=== PATIENT | male | born 1985 | race Caucasian/White ===

== ENCOUNTER 2019-07-09 14:41 | Outpatient (CLI) | payer OTHER ==
--- NOTE | 2019-07-10 10:54 | MRI Report ---
Reason: PAIN IN LEFT SHOULDER Procedure Date: 07/09/2019 Accession Number: [id number] / [id number] Procedure: MRI - Shoulder LT W/O CPT Code: Final Report FULL RESULT: EXAM: LEFT SHOULDER MRI WITHOUT CONTRAST EXAM DATE: 07/09/2019 04:10 PM. CLINICAL HISTORY: Pain in left shoulder. COMPARISON: None. TECHNIQUE: Multiplanar, multisequence T1-weighted and fluid-sensitive sequences of the shoulder without contrast. Other: None. FINDINGS: Acromioclavicular Region: The acromion is type II unipartite. The acromioclavicular joint is unremarkable. The coracoacromial and coracoclavicular ligaments are intact. Trace amount of bursal fluid is present. Glenohumeral Region: No subluxation. No effusion or loose bodies. The articular cartilage is unremarkable. The glenohumeral ligaments and joint capsule are unremarkable. Bone Marrow: No fracture, marrow edema or bone lesions. Labrum: Undersurface abnormal increased T2 signal at the biceps labral attachment. Series 501 image 13. Musculature/Rotator Cuff: There is a small amount of increased T2 signal of the distal subscapularis portion of the cuff. No partial or full-thickness fluid-filled gaps are noted. Mild amount of increased T2 signal in the distal supraspinatus and infraspinatus portion of the cuff. No proximal edema or fatty atrophy. Biceps Tendon: The long head of the biceps tendon and biceps katheryn are intact. Other: The subcutaneous tissues are unremarkable. IMPRESSION: 1. Type II unipartite undersurface osseous acromion shape. AC joint is unremarkable. Trace amount of bursal fluid is present. This may indicate mild bursitis. 2. Increased T2 signal undersurface of the biceps labral attachment, worrisome for a SLAP lesion. 3. Mild tendinopathy/tendinitis at the subscapularis portion of the cuff. No partial or full-thickness tears are seen. Lesser amounts of increased T2 signal seen in the supraspinatus and infraspinatus portions of the cuff. Teres minor is normal. 4. Long head of biceps also is normal. [facility]
== END 2019-07-09 14:42 | disposition home or self-care (01) ==
LOC: DI 14:41
DX: M77.9 Enthesopathy, unspecified (principal); M25.412 Effusion, left shoulder

== ENCOUNTER 2019-09-17 14:09 | Outpatient (CLI) | payer OTHER ==
[2019-09-17] MEDS ORDERED: BUFFERED LIDOCAINE 10 ML SYRINGE ONE (14:23)
[2019-09-17] MEDS ORDERED: GADOBUTROL 10 MMOL/10 ML VIAL ONE (14:23)
[2019-09-17] MEDS ORDERED: IOTHALAMATE MEGLUMINE 50 ML VIAL ONE (14:23)
--- NOTE | 2019-09-17 15:57 | XRAY Report ---
Reason: PAIN IN LT SHOULDER Procedure Date: 09/17/2019 Accession Number: [id number] / [id number] Procedure: FL - Arthrogram Needle Placement CPT Code: Final Report FULL RESULT: EXAM: LEFT SHOULDER ARTHROGRAPHIC INJECTION WITH FLUOROSCOPIC GUIDANCE EXAM DATE: 09/17/2019 03:07 PM. CLINICAL HISTORY: Pain in left shoulder. COMPARISON: ARTHROGRAM SHOULDER LT 09/17/2019 3:06 PM. TECHNIQUE: The risks, benefits, and alternatives of the procedure were discussed with the patient. All questions were answered. Written and verbal consent were obtained. The glenohumeral joint was marked under fluoroscopy and prepped and draped in a sterile manner. Local anesthesia was performed with 1% lidocaine. A 22-gauge needle was then inserted into the glenohumeral joint. 10 mL of a solution containing 25% 1% lidocaine, 25% iodinated contrast, and a 1:200 dilution of gadolinium contrast in sterile saline was then injected. The needle was removed without immediate complication. Other: None. Fluoroscopy Time: 0.1 minutes. Number of Images: 2. FINDINGS: Bones and joints: No fracture or subluxation. Injection: Fluoroscopic images demonstrate needle placement and contrast in the glenohumeral joint. No contrast extravasation outside of the glenohumeral joint. IMPRESSION: Successful fluoroscopically guided arthrographic injection of the shoulder. [facility]
--- NOTE | 2019-09-17 16:23 | MRI Report ---
Reason: PAIN IN LT SHOULDER Procedure Date: 09/17/2019 Accession Number: [id number] / [id number] Procedure: MRI - Arthrogram Shoulder LT CPT Code: Final Report FULL RESULT: EXAM: LEFT SHOULDER MRI ARTHROGRAM WITH CONTRAST EXAM DATE: 09/17/2019 03:52 PM. CLINICAL HISTORY: Pain in left shoulder. COMPARISON: SHOULDER LT W/O 07/09/2019 3:38 PM. TECHNIQUE: Multiplanar, multisequence T1-weighted and fluid-sensitive sequences of the shoulder after an arthrographic injection of dilute gadolinium, dictated under a separate exam. Other: None. FINDINGS: Acromioclavicular Region: The acromion is type II unipartite.. AC joint shows some hypertrophic changes and mild broadening of the articular surfaces. The coracoacromial and coracoclavicular ligaments are intact. There is no contrast or fluid in the subacromial/subdeltoid bursa. Glenohumeral Region: No subluxation. No loose bodies. The articular cartilage is unremarkable. The glenohumeral ligaments and joint capsule are unremarkable. Bone Marrow: Benign-appearing cystic changes seen superior lateral aspect of the humerus. No fractures. Labrum: Type II SLAP lesion is outlined with arthrographic contrast. 601 on image 13, series 501 image 18. Biceps Tendon: The long head of the biceps tendon and biceps katheryn are intact. Musculature/Rotator Cuff: Undersurface partial-thickness tear of the distal supraspinatus involves about one-third of the tendon thickness measuring about 4 mm from side to side by 9 mm from front to back. No edema or fatty atrophy. Other: The subcutaneous tissues are unremarkable. IMPRESSION: 1. Type II unipartite undersurface osseous acromion shape. 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 2. Type II SLAP lesion aligns well with contrast. Long head of biceps is normal. 3. Partial-thickness undersurface tear distal supraspinatus involves about one-third of the tendon thickness measuring 4.0 x 9.0 cm. Remainder of the rotator cuff appears unremarkable. 4. Long head biceps appears normal. 5. Glenohumeral articular surfaces appear intact. [facility]
[2019-09-17] MEDS: IOTHALAMATE MEGLUMINE 50 ML VIAL IVP ONE (17:26)
[2019-09-17] MEDS: BUFFERED LIDOCAINE 10 ML SYRINGE IU ONE (17:27)
[2019-09-17] MEDS: GADOBUTROL 10 MMOL/10 ML VIAL IVP ONE (17:27)
== END 2019-09-17 14:10 | disposition home or self-care (01) ==
LOC: DI 14:09
PROVIDERS: ATTEND Orthopaedic Surgery
DX: M19.012 Primary osteoarthritis, left shoulder (principal); M75.112 Incomplete rotator cuff tear or rupture of left shoulder, not specified as traumatic
CPT/HCPCS: 23350; 73222; 77002; A9585; Q9961